=== PATIENT | female | born 1995 | race Caucasian/White ===

== ENCOUNTER 2016-05-07 16:15 | Emergency (ER) | payer OTHER ==
[~2016-05-07] VITALS: Ht 167.6 cm; Wt 84.1 kg
[2016-05-07 16:15] VITALS: BP 113/88; PULSE 82; RESP 18; O2SAT 96
--- NOTE | 2016-05-07 19:09 | ED.REPORT ---
HPI-Psychiatric Illness Date of Service May 07, 2016 ED Provider: Michael De León PA-C Vilma is a 21-year-old female who presents with a chief complaint of thoughts of self-harm. Patient states that since she has been bothered by recurrent thoughts of harming herself periods of intense anxiety related to being in crowds. She has approximately a 7 year history of depression and treated with citalopram successfully until now. Patient states that she is not interested in killing herself rather feeling pain and with distraction from the pain she feels her legs. 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 She has been treated with a small dose of gabapentin, but she carries no official diagnosis. Mother reports that shortly prior to presentation the patient hit the mirror in the bathroom, and the patient states that she has been extremely bothered by thoughts of harming herself for the last several hours. To this point her self-harm is limited to scratching at her skin and status the wrist with a rubber band, but she is afraid she may do something more dangerous. Patient denies any history of suicide attempts, history of friends over relations committing suicide, history of drug abuse, access to firearms, history of mental health hospitalization. Patient's primary care provider is Braulio Donis, who is stopped her citalopram 2 days ago and started her on Prozac. The patient has taken only one dose of Prozac. She currently has plans to follow up May 26. Patient has been staying with her mother since symptoms began. Denies any physical symptoms. Nursing Notes Stated Complaint: MENTAL HEALTH EVAL, THOUGHTS OF SELF HARM Chief Complaint: Psychiatric Complaint Nursing Notes Reviewed: Yes Allergies: Uncoded Allergies: OPIOIDS (Allergy, Unknown, 05/07/16) General Time Seen by MD: 18:44 Chief Complaint Other (thoughts of self-harm) Risk-Psychiatric Illness Suicide Risk Stratification Suicide Risk Factors - Adult: No: Access to firearms, Alcohol use, Close associate suicide, Family Hx of Suicide, Previous attempt, Prior psych admission , Substance abuse RF Statements: Risk factors reviewed Past Medical History Past Medical History Unknown neurologic condition affecting her legs. Depression Denies: Diabetes mellitus Review of Systems General: Denies fever, chills, malaise. HEENT: Admits headache, Denies congestion, sore throat. Respiratory: Denies dyspnea, cough, shortness of breath, wheezing. Cardiovascular: Denies chest pain, palpitations. Gastrointestinal: Denies vomiting, diarrhea, abdominal pain. Genitourinary: Denies frequency, urgency, dysuria, hematuria. Denies vaginal bleeding/discharge. Otherwise as noted in HPI. Physical Exam General: Well appearing, well developed, well nourished, no acute distress. Patient is pleasant and seated comfortably in her wheelchair. Head: Atraumatic, normocephalic. Eyes: No scleral icterus or injection. No discharge. Vision grossly intact. ENT: Voice clear, hearing grossly intact. Respiratory: Regular rate and rhythm. Breath sounds present, clear to auscultation and equal bilaterally. Cardiovascular: Regular rate and rhythm, without murmur, gallop or rub. No pedal edema. Gastrointestinal: Abdomen flat and non-tender without guarding or rebound. Bowel sounds normoactive. Skin: Warm and dry. Neurological: Grossly nonfocal. Psychological: Alert and oriented. Speech appropriate, linear and logical. Behavior appropriate. Initial Vital Signs Vital Signs (First) Date Time Temp Pulse Resp B/P Pulse Ox O2 Delivery O2 Flow Rate FiO2 05/07/16 16:15 36.6 82 18 113/88 96 Room Air Initial VS: Reviewed Interpretation & Diagnostics Lab Results Interpretation Test 05/07/16 19:42 Hold Urine Received (Received) Re-Eval/Medical Decision Med Decision/Clinical Course Patient is a 20-year-old female with chief complaint of thoughts of self-harm. Physical reveals no sign of medical instability. Reviewed suicide risk factors and found them negative. Patient had a good conversation with our director of social work to discuss coping strategies, primary care follow-up and mental health follow-up. Both the patient and her mother are comfortable being discharged to home at this time and will return if it becomes necessary. Discharge & Departure Impression: Primary Impression: Thoughts of self harm )( Condition at Discharge: No danger to self, No danger to others Disposition: Home Discharge Condition All VS Reviewed: Yes Condition: Stable Patient Instructions: Suicide Prevention Through Young Adulthood (ED) Additional Instructions: Evaluation for possible self-harm in the ED. After discussion with our director of social work and sounds as though you have developed a safety plan for going home and the plan for addressing these issues with your primary care provider. Both you and your mother are comfortable with this plan and will be able to return to emergency department if you need to. Follow-up with your primary care provider as soon as possible to manage your medication and return to emergency department for any new or worsening symptoms such as thoughts of killing yourself or thoughts of harming yourself. Referrals: Madie Donis MD (PCP) EDSupervising Provider for APC: Yonathan Cornelius MD, Seth PA-C May 07, 2016 19:09
[2016-05-07 20:51] VITALS: BP 116/63; PULSE 76; RESP 18; O2SAT 98
[2016-05-07 21:52] VITALS: BP 118/70; PULSE 87; RESP 16; O2SAT 97
== END 2016-05-07 21:54 | disposition home or self-care (01) ==
LOC: SED 16:15
DX: F33.1 Major depressive disorder, recurrent, moderate (principal); M79.2 Neuralgia and neuritis, unspecified; Z88.5 Allergy status to narcotic agent